=== PATIENT | female | born 1945 | race Caucasian/White ===

== ENCOUNTER → 2016-08-26 | Outpatient (CLI) | payer OTHER ==
[~2016-08-26] MED LIST: AMPI500C9 PO; ASPCH81X PO; CEFTRIAXONE PEG; CHOL20009 PO; CIPR-255 PO; DIPH-416 PO; DIPHEN/ATROPINE PO; ESCI1TAB10 PO; FLUO20CA35 PO; FLV1 PO; HYDR-5688 PO; MIRA100T PO; MISCCAP80 PO; PHEN-775 PO; PHEN-876 PO; RMCI IV
[2016-08-26 17:42] LABS: COMPLETE YES; EOS % 2.4 %; HEMATOCRIT 40.6 % (37-47); IG% 0.3 %; LYMPH % 44.9 %; MEAN CELL VOLUME 93.8 fL (80-100); MEAN CORPUSCULAR HEMOGLOBIN 30.9 pg (25-34); MEAN PLATELET VOLUME 10.3 fL (7.4-10.4); MONO % 6.6 %; NEUT % 45.8 %; PLATELET COUNT 142 K/uL (130-400); RED BLOOD COUNT 4.33 M/uL (4.2-5.4); WHITE BLOOD COUNT 3.79 K/uL (4.8-10.8)
[2016-08-26 17:58] LABS: ALT/SGPT 15 U/L (12-78); BLOOD UREA NITROGEN 18 mg/dl (7-18); BUN/CREATININE RATIO 17.5 (10-20); CALCIUM 9.4 mg/dl (8.5-10.1); CARBON DIOXIDE 27 mmol/L (21-32); CHLORIDE 106 mmol/L (98-107); GLUCOSE 159 mg/dl (70-99); SODIUM 143 mmol/L (136-145)
[2016-08-26 18:01] LABS: ALB/GLOB RATIO 1.4 (0.9-2); ALKALINE PHOSPHATASE 79 U/L (45-117); AST/SGOT 16 U/L (15-37)
== END | disposition home or self-care (01) ==
LOC: C.LABPBG 14:51
PROVIDERS: ATTEND Nurse Practitioner Family
DX: D37.6 Neoplasm of uncertain behavior of liver, gallbladder and bile ducts (principal)

== ENCOUNTER → 2016-09-07 | Outpatient (CLI) | payer OTHER ==
[~2016-09-07] MED LIST changes: +OPTIRAY 320 IV PRN
--- NOTE | 2016-09-07 10:16 | DIAGNOSTIC IMAGING REPORT ---
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 Images are reviewed in the axial, sagittal, and coronal planes. IV contrast was administered without complication. CT DOSE: FINDINGS: Thyroid: Imaged portions of the thyroid gland are normal in appearance. Thoracic aorta: The thoracic aorta is normal in course and caliber, noting standard 3-vessel arch anatomy. No aneurysm or dissection is seen. Pulmonary vasculature: The pulmonary trunk is normal in caliber. There are no central filling defects identified to suggest pulmonary embolus. Note that this examination was not protocoled for the evaluation of pulmonary emboli. HEART: The heart is normal in size and configuration, without pericardial effusion. Lungs and pleural spaces: No pleural effusions are visualized. There are scattered tiny bilateral pulmonary nodules. The largest is located within the left upper lobe as visualized in image #[id number]. This measures 5 mm. These remain unchanged the prior study. Mediastinum: There is no mediastinal lymphadenopathy. June: Clear. Axilla: Clear. Upper abdomen: Partially visualized upper abdominal viscera is within normal limits. Skeletal structures: There are no lytic or blastic osseous lesions. 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 Contrast is visualized within multiple chest wall collaterals IMPRESSION: 1. No significant change from the preceding study 2. No evidence of pathologic adenopathy 3. Multiple stable scattered subcentimeter pulmonary nodules 4. 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 Electronically signed by: Magnus Hoover M.D. 09/07/2016 10:15 AM Dictated Date/Time: 09/07/2016 10:04 AM
--- NOTE | 2016-09-07 10:21 | DIAGNOSTIC IMAGING REPORT ---
CT OF THE ABDOMEN WITH IV CONTRAST CT DOSE: 377.38 mGy.cm CLINICAL HISTORY: MALIGNANT HEMANGIOENDOTHELIOMA. TECHNIQUE: Axial images of the abdomen were obtained following intravenous injection of 94 cc of Optiray 320 IV. COMPARISON STUDY: CT of the abdomen and pelvis May 07, 2015 and renal ultrasound April 20, 2016. FINDINGS: The chest will be reported separately. No hepatic lesions are identified. Stable postsurgical findings consistent with resection along the inferior aspect of the right hepatic lobe are noted. The appearance of the operative bed is unchanged with mild soft tissue thickening. No mass is identified on this exam. No enlarged abdominal lymph nodes are present. The spleen, adrenal glands, kidneys and pancreas are normal. There is no upper abdominal adenopathy or ascites. Postsurgical findings involving the right colon are noted. No suspicious osseous lesions are present. Mild dilatation of the common bile duct is unchanged status post cholecystectomy. IMPRESSION: 1. No evidence of recurrent malignancy status post hepatic lesion resection. 2. Mild dilatation of the common bile duct. This is likely related to prior cholecystectomy although could be correlated with obstructive liver function tests. Electronically signed by: Zeb Thomas M.D. 09/07/2016 10:20 AM Dictated Date/Time: 09/07/2016 10:04 AM
== END | disposition home or self-care (01) ==
LOC: C.CTS 09:22
PROVIDERS: ATTEND Internal Medicine Hematology & Oncology
DX: C49.9 Malignant neoplasm of connective and soft tissue, unspecified (principal); R91.1 Solitary pulmonary nodule

== ENCOUNTER 2016-10-18 07:43 | Day surgery (SDC) | payer OTHER ==
[2016-10-04 09:01] VITALS: BMI 18.0
--- NOTE | 2016-10-04 09:36 | PAT Medication Instructions ---
Service Date Oct 04, 2016. Current Home Medication List Aspirin (Aspirin Chewable), 81 MG PO HS Cholecalciferol (Vitamin D), 1 TAB PO QAM Diphenoxylate/Atropine (Lomotil), 2 TABS PO QID PRN for Diarrhea Escitalopram Oxalate (Lexapro), 20 MG PO QAM Folic Acid (Folic Acid), 1 MG PO QAM Infliximab (Remicade), 100 MG IV [id number] Mirabegron (Myrbetriq Er), 25 MG PO QAM Probiotic Product (Probiotic), 1 TAB PO QAM Medication Instructions For Your Scheduled Surgery Aspirin (Aspirin Chewable), 81 MG PO HS (patient will check with surgeon for instructions) Infliximab (Remicade), 100 MG IV [id number] (continue as usual) - Hold the following medications the morning of surgery: Mirabegron (Myrbetriq Er), 25 MG PO QAM Probiotic Product (Probiotic), 1 TAB PO QAM Folic Acid (Folic Acid), 1 MG PO QAM Cholecalciferol (Vitamin D), 1 TAB PO QAM Diphenoxylate/Atropine (Lomotil), 2 TABS PO QID PRN for Diarrhea - Take the following medications the morning of surgery with a sip of water: Escitalopram Oxalate (Lexapro), 20 MG PO QAM - Take the following medications as scheduled the night before surgery: Diphenoxylate/Atropine (Lomotil), 2 TABS PO QID PRN for Diarrhea If you have any questions please call us at [phone] or [phone] ( [place]) or [phone]
[2016-10-04 10:17] LABS: COMPLETE YES; EOS % 2.5 %; LYMPH % 41.1 %; LYMPH ABS # 1.47 K/uL (1.2-3.4); MEAN CELL VOLUME 94.2 fL (80-100); MEAN CORPUSCULAR HEMOGLOBIN 30.2 pg (25-34); MEAN CORPUSCULAR HGB CONC 32.1 g/dl (32-36); MEAN PLATELET VOLUME 10.1 fL (7.4-10.4); MONO % 7.5 %; NEUT % 48.9 %; PLATELET COUNT 131 K/uL (130-400); RED BLOOD COUNT 4.14 M/uL (4.2-5.4); WHITE BLOOD COUNT 3.58 K/uL (4.8-10.8)
[2016-10-04 10:31] LABS: MANUAL MICROSCOPIC REQUIRED? NO; REVIEW REQ? NO; URINE APPEARANCE CLEAR (CLEAR); URINE BILIRUBIN NEG (NEG); URINE COLOR YELLOW; URINE NITRITE NEG (NEG); URINE PH 8.5 (4.5-7.5); URINE SPECIFIC GRAVITY 1.013 (1.000-1.030); UROBILINOGEN NEG (NEG)
[2016-10-04 10:37] LABS: BUN/CREATININE RATIO 17.7 (10-20); CALCIUM 9.1 mg/dl (8.5-10.1); CREATININE 0.71 mg/dl (0.60-1.20); POTASSIUM 4.2 mmol/L (3.5-5.1)
[~2016-10-18] VITALS: Ht 165.1 cm; Wt 51.4 kg
[~2016-10-18 07:43] MED LIST changes: -AMPI500C9 PO; -CEFTRIAXONE PEG; -CIPR-255 PO; +CIPROFLOXACIN / D5W 400 MG IV SCH; -DIPHEN/ATROPINE PO; -FLUO20CA35 PO; -HYDR-5688 PO; +LACTATED RINGER'S 1000ML 1,000 ML IV SCH; +MITOMYCIN FOR INJ 40 MG in SYRINGE 40 ML IR SCH; -OPTIRAY 320 IV PRN; -PHEN-775 PO; -PHEN-876 PO
[2016-10-18 08:00] VITALS: BP 141/84; PULSE 93; TEMP 36.7; O2SAT 99; Ht 165.1 cm; Wt 51.4 kg
[2016-10-18] MEDS ORDERED: ATROPINE SULFATE 0.1 MG/ML 5ML SYR IV PRN (09:00)
[2016-10-18] MEDS ORDERED: HYDROmorphone INJ 1 MG/ML SYR IV PRN (09:00)
[2016-10-18] MEDS ORDERED: ONDANSETRON INJ 2 MG/ML 2 ML VIAL IV PRN (09:00)
[2016-10-18] MEDS ORDERED: MEPERIDINE HCL 25 MG/ML CARP IV PRN (09:00)
[2016-10-18] MEDS ORDERED: LABETALOL HCL IV 5 MG/ML 20ML IV PRN (09:00)
[2016-10-18] MEDS ORDERED: EpHEDrine SULFATE INJ 50 MG/ML AMP IV PRN (09:00)
[2016-10-18] MEDS ORDERED: FENTANYL CITRATE INJ 50 MCG/1 ML 2 ML VIAL IV PRN (09:00)
[2016-10-18] MEDS ORDERED: MIDAZOLAM HCL 1 MG/ML 2ML VIAL ONE (09:28)
[2016-10-18] MEDS ORDERED: PROPOFOL IV EMULSION 10 MG/ML 20 ML VIAL IV ONE ×3 (09:28→11:12)
[2016-10-18] MEDS ORDERED: LIDOCAINE HCL 2% 2 ML VIAL (20MG/ML) ONE ×2 (09:28→11:12)
[2016-10-18] MEDS ORDERED: FENTANYL CITRATE INJ 50 MCG/1 ML 2 ML VIAL ONE (09:28)
[2016-10-18] MEDS ORDERED: DEXAMETHASONE SOD INJ 4 MG/ML VIAL ONE (09:28)
[2016-10-18] MEDS ORDERED: ONDANSETRON INJ 2 MG/ML 2 ML VIAL ONE (09:28)
--- NOTE | 2016-10-18 10:25 | History & Physical Bridge Note ---
H&P Re-Evaluation Bridge Note: I have examined the patient, reviewed the History & Physical and in the interval since the performance of the History & Physical I have noted the following changes of clinical significance: No changes noted
[2016-10-18] MEDS ORDERED: PHENAZOPYRIDINE HCL 200 MG TAB PO STA (11:31)
[2016-10-18] MEDS ORDERED: SODIUM CHLORIDE 0.9% 1000ML 1,000 ML IV SCH (11:31)
[2016-10-18] MEDS ORDERED: KETOROLAC TROMETHAMINE 30 MG/ML VIAL IV. STA (11:31)
--- NOTE | 2016-10-18 11:31 | [facility] Post Operative Brief Note ---
Immediate Operative Summary Operative Date Oct 18, 2016. Pre-Operative Diagnosis Bladder ca Post-Operative Diagnosis suspected recurrence Procedure(s) Performed cystoscopy; bladder biopsy; fulguration; instillation of mitomycin C Surgeon Amy Sullivan MD Hospice Volunteer Coordinator Surgeon(s) none Estimated Blood Loss 5cc Findings numerous small, ulcerated lesions in the bladder - the largest on the left lateral wall, second largest on the right lateral wall. also with a small area with suspected early papillary tumor (Left lateral wall) - largest lesions were biopsied. All erythematous patches were fulgurated entirely. - mitomycin C instilled at the conclusion of the case Specimens L bladder wall biopsy R bladder wall biopsy Drains 16F galo Anesthesia gen Complication(s) None Disposition Recovery Room / PACU (stable)
[2016-10-18] MEDS ORDERED: HYDR-5688 PO (11:33)
[2016-10-18] MEDS ORDERED: CIPR-255 PO (11:33)
[2016-10-18] MEDS ORDERED: PHEN-876 PO (11:33)
--- NOTE | 2016-10-18 11:35 | Discharge Instructions ---
Discharge Instructions Date of Service Oct 18, 2016. Admission Reason for Admission: Bladder Cancer Discharge Discharge Diagnosis / Problem: bladder cancer Discharge Goals Goal(s): Decrease discomfort, Improve function, Increase independence, Improve disease control, Prevent Disease Progression Activity Recommendations Activity Limitations: resume your previous activity Lifting Limitations: none Exercise/Sports Limitations: none May Resume Sexual Activity: when tolerated Shower/Bathe: no limitations Driving or Machine Use: no limitations (as long as you are off of pain meds) . Instructions / Follow-Up Instructions / Follow-Up Please keep your previously scheduled follow up appointment with Dr. Sullivan Discharge Diet Recommended Diet: Regular Diet Procedures Procedures Performed: cystoscopy; bladder biopsy; fulguration; instillation of mitomycin C Pending Studies Studies pending at discharge: no Medical Emergencies . Who to Call and When: Medical Emergencies: If at any time you feel your situation is an emergency, please call 911 immediately. . Non-Emergent Contact Non-Emergency issues call your: Urologist Call Non-Emergent contact if: you have a fever, temperature is above 101.5, your pain is not controlled, your pain is worsening . . "Provider Documentation" section prepared by Hector Nuno. VTE Core Measure Inpt VTE Proph given/why not?: Other Anticoagulation [place] Drug Monitoring Program Search Results: patient reviewed within database, no issues identified
[2016-10-18] MEDS ORDERED: PHENAZOPYRIDINE HCL 200 MG TAB PO PRN (11:45)
[2016-10-18] MEDS ORDERED: ACETAMINOPHEN 325 MG TAB PO PRN (11:45)
[2016-10-18] MEDS ORDERED: OXYCODONE/ACETAMINOPHEN 5-325 TAB PO PRN ×2 (11:45)
--- NOTE | 2016-10-18 12:39 | Anesthesiology Progress Note ---
Anesthesia Post Op Note Date & Time Oct 18, 2016 at 12:38 Vital Signs Pain Intensity: 3 Vital Signs Past 12 Hours Date Time Temp Pulse Resp B/P Pulse Ox O2 Delivery O2 Flow Rate FiO2 10/18/16 12:30 37.0 81 22 134/80 96 Room Air 10/18/16 12:25 83 26 133/83 97 Room Air 10/18/16 12:20 98 20 161/108 98 Room Air 10/18/16 12:10 103 17 166/84 97 Room Air 10/18/16 12:00 98 19 168/101 100 Mask 10 10/18/16 11:50 88 16 152/87 100 Mask 10 10/18/16 11:43 36.4 86 16 144/89 100 Mask 10 10/18/16 08:00 36.7 93 20 141/84 99 Room Air Notes Mental Status: alert / awake / arousable, participated in evaluation Pt Amnestic to Procedure: Yes Nausea / Vomiting: adequately controlled Pain: adequately controlled Airway Patency, RR, SpO2: stable & adequate BP & HR: stable & adequate Hydration State: stable & adequate Anesthetic Complications: no major complications apparent
[2016-10-18 12:44] VITALS: BP 119/71; PULSE 79; TEMP 36.9; O2SAT 95
[2016-10-18 13:15] VITALS: BP 111/62; PULSE 101; O2SAT 99
[2016-10-18 13:55] VITALS: BP 120/61; PULSE 111; TEMP 36.7; O2SAT 96
--- NOTE | 2016-10-18 15:33 | OPERATIVE REPORT ---
DATE OF OPERATION: 10/18/2016 PREOPERATIVE DIAGNOSES: History of bladder cancer, recurrent dysuria and hematuria. POSTOPERATIVE DIAGNOSIS: History of bladder cancer, suspected recurrence. PROCEDURES PERFORMED: Cystoscopy, bladder biopsy, and fulguration. ANESTHESIA: General. ESTIMATED BLOOD LOSS: 5 mL. URINE OUTPUT: Not recorded. SPECIMEN: 1. Left lateral bladder wall biopsy for routine pathology. 2. Right lateral bladder wall biopsy for routine pathology. DRAINS: A 16-Hungarian Gomez catheter placed secondary to instillation of mitomycin C intravesical chemotherapy. DESCRIPTION OF THE PROCEDURE: Kathe Foster was identified in the preoperative holding area. Appropriate informed consents were reviewed and completed and the patient was transported to the operating suite. Upon arrival, she received appropriate preoperative antibiotics in the form of Cipro and general anesthesia. She was placed in dorsal lithotomy position and sterilely prepped and draped. I passed a 22-Hungarian cystoscope with 30-degree lens to begin my inspection. Inspection revealed several ulcerative lesions around the bladder. There were approximately 5-6 of these noted initially with the largest 2 being on the left lateral bladder wall as well as the right lateral bladder wall. On the right side, this was adjacent to a previous resection scar. Both ureteral orifices were identified and from these erythematous lesions by several centimeters. After this full inspection, I failed to initially reveal any papillary tumors and I elected to biopsy the erythematous patches and ulcerated areas. I began on the left side, taking 2 cores from the center of the ulcerative lesion. These were passed off the table. I then proceeded to perform the same procedure on the right, taking 2 cold cup biopsies from the right ulcerative lesion. I then passed a resecting element with the button electrode and began to fulgurate the base of the biopsy sites followed by a complete fulguration of the remaining aspect of ulcerative area. I first started on the left side and then I again moved to the right side. I then proceeded to fulgurate all the remaining ulcerative red lesions. On close inspection just medial to the left-sided ulcerate area, there appeared to be some raised early papillary tumor type tissue neoplasms appreciated. I fulgurated these entirely smooth with the base of the bladder. I proceeded to treat all irritated and inflamed areas before concluding the case. There was excellent hemostasis at the conclusion and no active untreated areas appreciated. I then left the bladder full and withdrew the scope. I placed a 16-Hungarian Gomez catheter and drained the bladder completely. We then reinstilled 40 mg of mitomycin C mixed with 40 mL of sterile water into the bladder and capped the catheter. Gomez bag was attached still behind the clamp and the patient was extubated and taken to the PACU with mitomycin C in her bladder. This will be drained after 45 minutes of saturation time. The patient tolerated the procedure well and was taken to the PACU in stable condition. I attest to the content of the Intraoperative Record and any orders documented therein. Any exceptio ns are noted below.
[2017-01-17] MEDS ORDERED: CEFTRIAXONE PEG (07:03)
[2017-01-17] MEDS ORDERED: AMPI500C9 PO (07:03)
[2017-03-16] MEDS ORDERED: FLUO20CA35 PO (07:01)
[2017-04-05] MEDS ORDERED: PHEN-775 PO (15:22)
[2017-04-05] MEDS ORDERED: CIPR-255 PO (15:22)
== END 2016-10-18 14:00 | disposition home or self-care (01) ==
LOC: C.ACU 07:43
PROVIDERS: ATTEND Urology
DX: D09.0 Carcinoma in situ of bladder (principal); R35.0 Frequency of micturition; M10.9 Gout, unspecified; F32.9 Major depressive disorder, single episode, unspecified; E78.5 Hyperlipidemia, unspecified; E55.9 Vitamin D deficiency, unspecified; Z79.82 Long term (current) use of aspirin; Z79.899 Other long term (current) drug therapy

== ENCOUNTER → 2016-11-23 | Outpatient (CLI) | payer OTHER ==
[~2016-11-23] MED LIST changes: +AMPI500C9 PO; +CEFTRIAXONE PEG; +CIPR-255 PO; -CIPROFLOXACIN / D5W 400 MG IV SCH; +FLUO20CA35 PO; -LACTATED RINGER'S 1000ML 1,000 ML IV SCH; -MIRA100T PO; -MITOMYCIN FOR INJ 40 MG in SYRINGE 40 ML IR SCH; +PHEN-775 PO
== END | disposition home or self-care (01) ==
LOC: C.LABPBG 10:22
PROVIDERS: ATTEND Nurse Practitioner Family
DX: C67.9 Malignant neoplasm of bladder, unspecified (principal); R35.0 Frequency of micturition

== ENCOUNTER → 2016-12-09 | Outpatient (CLI) | payer OTHER | END | disposition home or self-care (01) | LOC: C.LABSPEC 17:29 | PROVIDERS: ATTEND Urology | DX: R35.0 Frequency of micturition (principal) ==

== ENCOUNTER → 2016-12-30 | Outpatient (CLI) | payer OTHER | END | disposition home or self-care (01) | LOC: C.LABSPEC 17:09 | PROVIDERS: ATTEND Nurse Practitioner Family | DX: N39.0 Urinary tract infection, site not specified (principal) ==

== ENCOUNTER → 2017-03-03 | Outpatient (CLI) | payer OTHER ==
[~2017-03-03] MED LIST changes: -AMPI500C9 PO; -CEFTRIAXONE PEG
[2017-03-03 13:29] LABS: COMPLETE YES; EOS % 0.4 %; HEMATOCRIT 36.5 % (37-47); IG% 0.2 %; LYMPH % 25.4 %; LYMPH ABS # 1.15 K/uL (1.2-3.4); MEAN CELL VOLUME 93.6 fL (80-100); MEAN CORPUSCULAR HEMOGLOBIN 29.7 pg (25-34); MEAN CORPUSCULAR HGB CONC 31.8 g/dl (32-36); MEAN PLATELET VOLUME 9.3 fL (7.4-10.4); MONO % 14.8 %; NEUT % 59.2 %; PLATELET COUNT 140 K/uL (130-400); WHITE BLOOD COUNT 4.52 K/uL (4.8-10.8)
[2017-03-03 13:55] LABS: ALT/SGPT 14 U/L (12-78); AST/SGOT 12 U/L (15-37); BLOOD UREA NITROGEN 12 mg/dl (7-18); BUN/CREATININE RATIO 12.4 (10-20); CALCIUM 9.1 mg/dl (8.5-10.1); CARBON DIOXIDE 26 mmol/L (21-32); CHLORIDE 103 mmol/L (98-107); CHOLESTEROL 152 mg/dl (0-200); CREATININE 0.94 mg/dl (0.60-1.20); GLUCOSE 94 mg/dl (70-99); POTASSIUM 3.7 mmol/L (3.5-5.1); SODIUM 137 mmol/L (136-145)
[2017-03-03 14:08] LABS: ALB/GLOB RATIO 0.8 (0.9-2); ALKALINE PHOSPHATASE 108 U/L (45-117); CHOLESTEROL/HDL RATIO 2.6; HDL CHOLESTEROL 58 mg/dl; LDL CHOLESTEROL CALCULATED 82 mg/dl; TRIGLYCERIDES 59 mg/dl (0-150); VERY LOW DENSITY LIPOPROT CALC 12 mg/dl
== END | disposition home or self-care (01) ==
LOC: C.LABBC 11:53
PROVIDERS: ATTEND Internal Medicine
DX: E55.9 Vitamin D deficiency, unspecified (principal); E78.5 Hyperlipidemia, unspecified

== ENCOUNTER → 2017-03-14 | Outpatient (CLI) | payer OTHER ==
--- NOTE | 2017-03-22 06:16 | CODING QUERY MEDICAL NECESSITY ---
CQSUPPORTING DIAGNOSIS NEEDED A supporting diagnosis is required for the test/procedure performed on this patient in order for us to be reimbursed by the patient's insurance. Please provide a supporting diagnosis for the following test/procedure listed below next to the test name along with your signature. *If there is no additional diagnosis for this patient that would support the following test/procedure please document that below next to the test/procedure. Test(s)/Procedure(s) that require a supporting diagnosis: KAMARI 03/14/17 URINE CULTURE Provider Signature: Date: Thank you Selena Ochoa [facility] Information Management Once completed, please kindly fax back to [phone] For questions please call [phone]
== END | disposition home or self-care (01) ==
LOC: C.LABSPEC 17:03
PROVIDERS: ATTEND Urology
DX: D09.0 Carcinoma in situ of bladder (principal); N39.0 Urinary tract infection, site not specified

== ENCOUNTER → 2017-03-21 | Outpatient (CLI) | payer OTHER ==
[~2017-03-21] MED LIST changes: -ESCI1TAB10 PO
[2017-03-21 12:22] LABS: COMPLETE YES; EOS % 1.1 %; HEMATOCRIT 36.6 % (37-47); LYMPH % 32.3 %; LYMPH ABS # 1.16 K/uL (1.2-3.4); MEAN CELL VOLUME 93.8 fL (80-100); MEAN PLATELET VOLUME 9.6 fL (7.4-10.4); MONO % 5.6 %; PLATELET COUNT 189 K/uL (130-400); WHITE BLOOD COUNT 3.59 K/uL (4.8-10.8)
[2017-03-21 12:43] LABS: ALT/SGPT 14 U/L (12-78); AST/SGOT 14 U/L (15-37); BLOOD UREA NITROGEN 14 mg/dl (7-18); CALCIUM 8.5 mg/dl (8.5-10.1); CARBON DIOXIDE 29 mmol/L (21-32); CHLORIDE 108 mmol/L (98-107); CREATININE 0.76 mg/dl (0.60-1.20); GLUCOSE 85 mg/dl (70-99); POTASSIUM 3.7 mmol/L (3.5-5.1); SODIUM 141 mmol/L (136-145)
[2017-03-21 12:46] LABS: ALKALINE PHOSPHATASE 94 U/L (45-117)
== END | disposition home or self-care (01) ==
LOC: C.LABPBG 08:58
PROVIDERS: ATTEND Nurse Practitioner Family
DX: D37.6 Neoplasm of uncertain behavior of liver, gallbladder and bile ducts (principal)

== ENCOUNTER → 2017-03-25 | Outpatient (CLI) | payer OTHER | END | disposition home or self-care (01) | LOC: C.LABSPEC 10:44 | PROVIDERS: ATTEND Nurse Practitioner Adult Health | DX: N39.0 Urinary tract infection, site not specified (principal) ==

== ENCOUNTER → 2017-04-05 | Day surgery (SDC) | payer OTHER ==
[2017-03-17 08:42] VITALS: BMI 19.0
[~2017-04-05] VITALS: Ht 165.1 cm; Wt 51.8 kg
[~2017-04-05] MED LIST changes: +ACETAMINOPHEN 325 MG TAB PO PRN; +ATROPINE SULFATE 0.1 MG/ML 5ML SYR IV PRN; +CIPROFLOXACIN / D5W 400 MG IV SCH; +DEXAMETHASONE SOD INJ 4 MG/ML VIAL ONE; +EpHEDrine SULFATE INJ 50 MG/ML AMP IV PRN; +FENTANYL CITRATE INJ 50 MCG/1 ML 2 ML VIAL IV PRN; +FENTANYL CITRATE INJ 50 MCG/1 ML 2 ML VIAL ONE; +HYDROCODONE/ACETAMOPHEN 5/325MG TAB PO PRN; +LACTATED RINGER'S 1000ML 1,000 ML IV SCH; +LIDOCAINE HCL 2% 2 ML VIAL (20MG/ML) ONE; +ONDANSETRON INJ 2 MG/ML 2 ML VIAL ONE; +PHENAZOPYRIDINE HCL 200 MG TAB PO STA; +PROPOFOL IV EMULSION 10 MG/ML 20 ML VIAL IV ONE; +SODIUM CHLORIDE 0.9% 1000ML 1,000 ML IV SCH
[2017-04-05 12:55] VITALS: BP 162/81; PULSE 92; TEMP 37.1; O2SAT 100; Ht 165.1 cm; Wt 51.8 kg
--- NOTE | 2017-04-05 15:23 | Discharge Instructions ---
Discharge Instructions Date of Service Apr 05, 2017. Admission Reason for Admission: Bladder Cancer Discharge Discharge Diagnosis / Problem: history of bladder cancer Discharge Goals Goal(s): Decrease discomfort, Increase independence, Improve disease control, Prevent Disease Progression Activity Recommendations Activity Limitations: resume your previous activity Lifting Limitations: none, no more than 10 pounds May Resume Sexual Activity: when tolerated Shower/Bathe: no limitations Driving or Machine Use: resume 1 day after discharge . Instructions / Follow-Up Instructions / Follow-Up Please keep your previously scheduled follow-up appointment with Dr. Sullivan Discharge Diet Recommended Diet: Regular Diet Procedures Procedures Performed: Cystoscopy, bladder biopsy, fulgeration Pending Studies Studies pending at discharge: no Laboratory Results Lipid Panel Test 03/03/17 12:07 Range/Units Triglycerides Level 59 0-150 mg/dl Cholesterol Level 152 0-200 mg/dl HDL Cholesterol 58 mg/dl Cholesterol/HDL Ratio 2.6 LDL Cholesterol, Calculated 82 mg/dl Medical Emergencies . Who to Call and When: Medical Emergencies: If at any time you feel your situation is an emergency, please call 911 immediately. . Non-Emergent Contact Non-Emergency issues call your: Urologist Call Non-Emergent contact if: you have a fever, temperature is above 101.5, your pain is not controlled, your pain is worsening . . "Provider Documentation" section prepared by Hector Nuno. . VTE Core Measure Inpt VTE Proph given/why not?: Treatment not indicated
--- NOTE | 2017-04-05 15:27 | [facility] Operative Report ---
Operative Report Operative Date Apr 05, 2017. 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 Sullivan Wheel Press Operator Surgeon(s) none Estimated Blood Loss 0 cc Findings Decreased inflammation from her in office cystoscopy; no papillary tumors Specimens A: Bladder biopsy Drains none Anesthesia Gen. 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 Upon arrival she received appropriate preoperative antibiotics in the form of ciprofloxacin. Adequate general anesthesia was achieved and she was placed in dorsal lithotomy position where she was sterilely prepped and draped in standard fashion. I begin the case by passing a 22 Greenlandic cystoscope with 30 lens. Full inspection of the bladder was carried out utilizing first the 30 lens followed by and 70 lens. There were no tumors visualized. Bladder was notably healthy with several scars that appear to be well healed. Her ureteral orifices weren't orthotopic position there is very mild erythema and edema of the trigone. In comparison to her in office cystoscopy, I feel that her bladder has improved. Given her history, however I elected to biopsy the area of the trigone with edema and erythema. After taking 2 biopsies, I fulgurated area and concluded the case. Her bladder was decompressed and the case concluded. There was excellent hemostasis. She was extubated and taken to the PACU in stable condition. I attest to the content of the Intraoperative Record and any orders documented therein. Any exceptions are noted below.
--- NOTE | 2017-04-05 15:59 | Anesthesiology Progress Note ---
Anesthesia Post Op Note Date & Time Apr 05, 2017 at 15:56 Vital Signs Pain Intensity: 0 Vital Signs Past 12 Hours Date Time Temp Pulse Resp B/P (MAP) Pulse Ox O2 Delivery O2 Flow Rate FiO2 04/05/17 15:45 84 17 145/78 100 Oxymask 10 04/05/17 15:35 78 14 129/85 100 Oxymask 10 04/05/17 15:25 37.1 86 16 137/95 100 Oxymask 10 04/05/17 12:55 37.1 92 20 162/81 (108) 100 Room Air Notes Mental Status: alert / awake / arousable, participated in evaluation Pt Amnestic to Procedure: Yes Nausea / Vomiting: adequately controlled Pain: adequately controlled Airway Patency, RR, SpO2: stable & adequate BP & HR: stable & adequate Hydration State: stable & adequate Anesthetic Complications: no major complications apparent Anesthetic Complications: The patient has a mild rash above her iv site on the right forearm and a mild rash on her chest. She had no knowledge of and allergy to any of the drugs she was given. In any case, it is mild and is spontaneously revolving.
[2017-04-05 16:10] VITALS: BP 129/71; PULSE 75; TEMP 37; O2SAT 98
[2017-04-05 16:40] VITALS: BP 138/70; PULSE 69; TEMP 37; O2SAT 98
== END | disposition home or self-care (01) ==
LOC: C.ACU 12:02
PROVIDERS: ATTEND Urology
DX: D09.0 Carcinoma in situ of bladder (principal); E78.5 Hyperlipidemia, unspecified; R03.0 Elevated blood-pressure reading, without diagnosis of hypertension; D72.819 Decreased white blood cell count, unspecified; M85.80 Other specified disorders of bone density and structure, unspecified site; E55.9 Vitamin D deficiency, unspecified; K50.90 Crohn's disease, unspecified, without complications; F41.1 Generalized anxiety disorder; F32.9 Major depressive disorder, single episode, unspecified; M10.9 Gout, unspecified; Z79.82 Long term (current) use of aspirin; Z79.899 Other long term (current) drug therapy

== ENCOUNTER → 2017-04-18 | Outpatient (CLI) | payer OTHER ==
[~2017-04-18] MED LIST changes: -ACETAMINOPHEN 325 MG TAB PO PRN; -ATROPINE SULFATE 0.1 MG/ML 5ML SYR IV PRN; -CIPROFLOXACIN / D5W 400 MG IV SCH; -DEXAMETHASONE SOD INJ 4 MG/ML VIAL ONE; -EpHEDrine SULFATE INJ 50 MG/ML AMP IV PRN; -FENTANYL CITRATE INJ 50 MCG/1 ML 2 ML VIAL IV PRN; -FENTANYL CITRATE INJ 50 MCG/1 ML 2 ML VIAL ONE; -HYDROCODONE/ACETAMOPHEN 5/325MG TAB PO PRN; -LACTATED RINGER'S 1000ML 1,000 ML IV SCH; -LIDOCAINE HCL 2% 2 ML VIAL (20MG/ML) ONE; -ONDANSETRON INJ 2 MG/ML 2 ML VIAL ONE; -PHEN-775 PO; -PHENAZOPYRIDINE HCL 200 MG TAB PO STA; -PROPOFOL IV EMULSION 10 MG/ML 20 ML VIAL IV ONE; -SODIUM CHLORIDE 0.9% 1000ML 1,000 ML IV SCH
--- NOTE | 2017-04-18 16:08 | MAMMOGRAPHY REPORT ---
BILATERAL DIGITAL SCREENING MAMMOGRAM TOMOSYNTHESIS WITH CAD: 04/18/2017 CLINICAL HISTORY: Routine screening examination. TECHNIQUE: Breast tomosynthesis in addition to standard 2D mammography was performed. Current study was also evaluated with a Computer Aided Detection (CAD) system. COMPARISON: Comparison is made to exams dated: 04/15/2016 mammogram, 04/09/2015 mammogram - [facility] [address], 02/22/2014 mammogram, 02/18/2014 mammogram, 02/05/2013 mammogram, and 01/07/2012 mammogr am - [facility]. BREAST COMPOSITION: The tissue of both breasts is extremely dense, which lowers the sensitivity of m ammography. FINDINGS: The parenchymal pattern is unchanged. No developing mass, architectural distortion or clus ter of suspicious microcalcifications is seen in either breast. IMPRESSION: ACR BI-RADS CATEGORY 2: BENIGN There is no mammographic evidence of malignancy. A 1 year screening mammogram is recommended. The pa tient will receive written notification of the results. Approximately 10% of breast cancers are not detected with mammography. A negative mammographic report should not delay biopsy if a clinically suggestive mass is present. Nory Sullivan M.D. ay/:04/18/2017 15:56:28 Chucking Machine Set Up Operator: Ramandeep ROSS(Devyn)(M), [facility] letter sent: Normal 1/2 BI-RADS Code: ACR BI-RADS Category 2: Benign
== END | disposition home or self-care (01) ==
LOC: C.MAMM 10:05
PROVIDERS: ATTEND Internal Medicine
DX: Z12.31 Encounter for screening mammogram for malignant neoplasm of breast (principal)

== ENCOUNTER → 2017-09-05 | Outpatient (CLI) | payer OTHER ==
[~2017-09-05] MED LIST changes: -CIPR-255 PO
== END | disposition home or self-care (01) ==
LOC: C.LABPBG 10:31
PROVIDERS: ATTEND Internal Medicine
DX: R30.0 Dysuria (principal)

== ENCOUNTER → 2017-09-06 | Outpatient (CLI) | payer OTHER ==
[2017-09-06 12:57] LABS: EOS ABS # 0.04 K/uL (0-0.5); HEMATOCRIT 39.6 % (37-47); HEMOGLOBIN 12.6 g/dL (12.0-16.0); LYMPH % 30.3 %; LYMPH ABS # 1.16 K/uL (1.2-3.4); MEAN CELL VOLUME 95.7 fL (80-100); MEAN CORPUSCULAR HEMOGLOBIN 30.4 pg (25-34); MEAN CORPUSCULAR HGB CONC 31.8 g/dl (32-36); MEAN PLATELET VOLUME 9.9 fL (7.4-10.4); MONO % 7.6 %; MONO ABS # 0.29 K/uL (0.11-0.59); NEUT % 61.1 %; NEUT ABS # 2.34 K/uL (1.4-6.5); PLATELET COUNT 155 K/uL (130-400); RED CELL DISTRIBUTION WIDTH CV 13.3 % (11.5-14.5); RED CELL DISTRIBUTION WIDTH SD 46.7 fL (36.4-46.3); WHITE BLOOD COUNT 3.83 K/uL (4.8-10.8)
[2017-09-06 14:36] LABS: ALBUMIN 3.6 gm/dl (3.4-5.0); ALKALINE PHOSPHATASE 88 U/L (45-117); ALT/SGPT 18 U/L (12-78); AST/SGOT 16 U/L (15-37); BLOOD UREA NITROGEN 14 mg/dl (7-18); CALCIUM 8.8 mg/dl (8.5-10.1); CARBON DIOXIDE 27 mmol/L (21-32); CREATININE 0.81 mg/dl (0.60-1.20); GLUCOSE 89 mg/dl (70-99); POTASSIUM 3.9 mmol/L (3.5-5.1); SODIUM 139 mmol/L (136-145); TOTAL PROTEIN 6.9 gm/dl (6.4-8.2)
== END | disposition home or self-care (01) ==
LOC: C.LABPBG 10:08
PROVIDERS: ATTEND Plastic Surgery
DX: D37.6 Neoplasm of uncertain behavior of liver, gallbladder and bile ducts (principal)

== ENCOUNTER → 2018-02-27 | Outpatient (CLI) | payer OTHER | END | disposition home or self-care (01) | LOC: C.PATHSPEC 17:07 | PROVIDERS: ATTEND Urology | DX: D09.0 Carcinoma in situ of bladder (principal) ==

== ENCOUNTER → 2018-03-06 | Outpatient (CLI) | payer OTHER ==
[2018-03-08 11:30] LABS: QUANTIF MITOGEN-NIL 9.44 IU/ML; QUANTIFERON NEGATIVE (NEGATIVE); QUANTIFERON NIL 0.33 IU/ML
== END | disposition home or self-care (01) ==
LOC: C.LABPBG 10:43
PROVIDERS: ATTEND Registered Nurse
DX: K50.90 Crohn's disease, unspecified, without complications (principal)